=== PATIENT | female | born 1985 | race Caucasian/White ===

== ENCOUNTER 2020-07-23 19:23 | Emergency (ER) | payer OTHER ==
[~2020-07-23] VITALS: Ht 170.2 cm; Wt 71.4 kg
[2020-07-23 20:12] LABS: BASOPHILS % (AUTO) 1 % (0-1); EOSINOPHILS % (AUTO) 1 % (1-7); LYMPHOCYTES % (AUTO) 23 % (22-44); MEAN CORPUSCULAR HEMOGLOBIN 34.5 pg (27.0-34.8); MEAN CORPUSCULAR HGB CONC 34.1 g/dL (32.4-35.8); MEAN PLATELET VOLUME 9.1 fL (7.4-10.4); MONOCYTES % (AUTO) 9 % (2-9); NEUTROPHILS % (AUTO) 66 % (42-75); PLATELET COUNT 299 x10^3/uL (130-400); RED BLOOD COUNT 4.15 x10^6/uL (3.82-5.3); RED CELL DISTRIBUTION WIDTH 13.1 % (9.6-15.2)
[2020-07-23 20:14] LABS: MD NO
[2020-07-23 20:15] LABS: ALANINE AMINOTRANSFERASE 20 U/L (12-78); ALBUMIN 3.7 g/dL (3.4-5.0); ANION GAP 3 mmol/L (5-15); CHLORIDE 109 mmol/L (98-107); CREATININE 0.85 mg/dL (0.55-1.02)
[2020-07-23 20:20] LABS: ALKALINE PHOSPHATASE 72 U/L (45-117); BILIRUBIN,TOTAL 0.2 mg/dL (0.2-1.0); TOTAL PROTEIN 7.3 g/dL (6.4-8.2)
[2020-07-23 20:27] LABS: MICROSCOPIC AUTO
--- NOTE | 2020-07-23 20:56 | NUR ---
pt ambulatory to room
--- NOTE | 2020-07-23 21:01 | NUR ---
PT HAVING CONSTANT ABDOMINAL PAIN STARTING THIS MORNING, PT STATES BEING NAUSEOUS BUT HAS NOT VOMITED, PT RESTING IN GURNEY, PLACED ON PULSE OX AND BLOOD PRESSURE CUFF, LABS ARE BACK, AWAITING DISPO. CURRENTLY 03/21 PAIN.
[2020-07-23 22:18] LABS: CLUE CELLS NONE SEEN (NONE SEEN); WET PREP WBCS FEW (FEW)
[2020-07-23] MEDS ORDERED: CEFDINIR 300 MG CAPSULE ONE (22:50)
[2020-07-23 22:52] VITALS: BP 132/75
[2020-07-23] MEDS ORDERED: BUSP5TAB2 PO (22:53)
--- NOTE | 2020-07-23 22:54 | NUR ---
PT. MEDICATED PER DEC. AWARE OF PLAN FOR D/C.
[2020-07-23] MEDS ORDERED: CEFDINIR 300 MG CAPSULE PO ONE (23:00)
== END 2020-07-23 23:00 | disposition home or self-care (01) ==
LOC: ED 21:39
DX: N30.00 Acute cystitis without hematuria (principal)
CPT/HCPCS: 36415; 80053; 81001; 83690; 84703; 85025; 87077; 87086; 87186; 87210; 87491; 87591; 87808; 99284

== ENCOUNTER 2020-10-28 20:29 | Emergency (ER) | payer OTHER ==
[~2020-10-28] VITALS: Ht 170.2 cm; Wt 71.4 kg
[~2020-10-28 20:29] MED LIST: BUSP5TAB2 PO
--- NOTE | 2020-10-28 20:40 | NUR ---
PATIENT ADVISED ON VISTATION POLICY AND RESP PRECAUTIONS. PATIENT VERBALIZED UNDERSTANDING. PATIENT'S VISITOR WILL WAIT IN CAR.
--- NOTE | 2020-10-28 20:51 | NUR ---
PATIENT WALKED BACK FROM TRIAGE WITH CHIEF C/O COUGH, SORE THROAT, CONGESTION, AND SOB. PATIENT ALSO REPORTS LOSS OF TASTE AND SMELL, PATIENT REPORTS SHE FEELS LIKE HER "CHEST IS ON FIRE." SYMPTOMS STARTED THURSDAY AND HAVE PROGRESSIVELY GOTTEN WORSE. PATIENT HAS NOT HAD ANY CONTACT WITH ANY COVID+ PERSONS. PATIENT DENIES N/V, PER PATIENT SHE "ALWAYS HAS DIARRHEA." NADN, VSS, PATIENT IS COUGHING.
[2020-10-28 22:08] VITALS: BP 116/74
--- NOTE | 2020-10-28 22:25 | NUR ---
Patient given discharge instructions and they have confirmed that they understand the instructions. Patient stable and ambulatory with steady gait from ED to private vehicle.
== END 2020-10-28 22:15 | disposition home or self-care (01) ==
LOC: ED 21:00
DX: J06.9 Acute upper respiratory infection, unspecified (principal); Z20.822 Contact with and (suspected) exposure to COVID-19; R43.8 Other disturbances of smell and taste; R94.31 Abnormal electrocardiogram [ECG] [EKG]
CPT/HCPCS: 87635; 93005; 99284